=== PATIENT | male | born 1960 | race Caucasian/White ===

== ENCOUNTER 2019-01-25 19:15 | Emergency (ER) | payer MEDICARE ==
[~2019-01-25] VITALS: Ht 182.9 cm; Wt 72.6 kg
--- NOTE | 2019-01-25 19:33 | ED Psychosocial ---
General Chief Complaint: Psych/Social Disorder Stated Complaint: PSYCH EVAL Source: patient, police, RN notes reviewed Exam Limitations: no limitations History of Present Illness Date Seen by Provider: Jan 25, 2019 Time Seen by Provider: 19:32 Initial Comments Patient brought in by [facility] for mental health screening. Reportedly left a suicide note earlier tonight, although patient currently denies being suicidal. Does admit to being depressed and states he does need help. Timing/Duration: getting worse Severity: moderate Associated Symptoms: denies symptoms Allergies and Home Medications Allergies Coded Allergies: No Known Drug Allergies (Unverified , 01/25/19) Patient Home Medication List Home Medication List Reviewed: Yes Review of Systems Constitutional: see HPI Psychiatric/Neurological: See HPI, Depressed All Other Systems Reviewed Negative Unless Noted: Yes (Negative excepted noted.) Physical Exam Vital Signs - First Documented 01/25/19 19:20 Temp 99.2 Pulse 98 Resp 16 B/P (MAP) 128/79 (95) Pulse Ox 97 O2 Delivery Room Air Capillary Refill : Height, Weight, BMI Height: '" Weight: lbs. oz. kg; BMI Method: General Appearance: no apparent distress, thin, other (unkept) Respiratory: No no respiratory distress Cardiovascular: regular rate, rhythm Neurologic/Psychiatric: no motor/sensory deficits, alert, oriented x 3, depressed affect Appearance/Memory: disheveled Behavior/Eye Contact: cooperative, avoids eye contact Thoughts/Hallucinations: no apparent hallucination Skin: warm/dry Progress/Results/Core Measures Results/Orders Lab Results Laboratory Tests Test 01/25/19 19:25 01/25/19 20:45 Range/Units White Blood Count 4.8 4.3-11.0 10^3/uL Red Blood Count 5.16 4.35-5.85 10^6/uL Hemoglobin 15.0 13.3-17.7 G/DL Hematocrit 44 40-54 % Mean Corpuscular Volume 86 80-99 FL Mean Corpuscular Hemoglobin 29 25-34 PG Mean Corpuscular Hemoglobin Concent 34 32-36 G/DL Red Cell Distribution Width 12.4 10.0-14.5 % Platelet Count 271 130-400 10^3/uL Mean Platelet Volume 9.9 7.4-10.4 FL Neutrophils (%) (Auto) 67 42-75 % Lymphocytes (%) (Auto) 22 12-44 % Monocytes (%) (Auto) 8 0-12 % Eosinophils (%) (Auto) 1 0-10 % Basophils (%) (Auto) 1 0-10 % Neutrophils # (Auto) 3.2 1.8-7.8 X 10^3 Lymphocytes # (Auto) 1.1 1.0-4.0 X 10^3 Monocytes # (Auto) 0.4 0.0-1.0 X 10^3 Eosinophils # (Auto) 0.1 0.0-0.3 10^3/uL Basophils # (Auto) 0.1 0.0-0.1 10^3/uL Sodium Level 137 135-145 MMOL/L Potassium Level 3.8 3.6-5.0 MMOL/L Chloride Level 97 L 98-107 MMOL/L Carbon Dioxide Level 22 21-32 MMOL/L Anion Gap 18 H 5-14 MMOL/L Blood Urea Nitrogen 21 H 7-18 MG/DL Creatinine 1.09 0.60-1.30 MG/DL Estimat Glomerular Filtration Rate > 60 BUN/Creatinine Ratio 19 Glucose Level 165 H 70-105 MG/DL Calcium Level 9.6 8.5-10.1 MG/DL Corrected Calcium 8.5-10.1 MG/DL Total Bilirubin 0.8 0.1-1.0 MG/DL Aspartate Amino Transf (AST/SGOT) 15 5-34 U/L Alanine Aminotransferase (ALT/SGPT) 11 0-55 U/L Alkaline Phosphatase 59 40-136 U/L Total Protein 7.6 6.4-8.2 GM/DL Albumin 4.8 H 3.2-4.5 GM/DL Salicylates Level < 0.3 L 5.0-20.0 MG/DL Acetaminophen Level < 10 L 10-30 UG/ML Serum Alcohol < 10 <10 MG/DL Urine Color YELLOW Urine Clarity CLEAR Urine pH 5.5 5-9 Urine Specific Hilliards >=1.030 1.016-1.022 Urine Protein TRACE NEGATIVE Urine Glucose (UA) NEGATIVE NEGATIVE Urine Ketones 1+ H NEGATIVE Urine Nitrite NEGATIVE NEGATIVE Urine Bilirubin 1+ H NEGATIVE Urine Urobilinogen 0.2 NORMAL MG/DL Urine Leukocyte Esterase NEGATIVE NEGATIVE Urine RBC (Auto) 1+ H NEGATIVE Urine RBC 0-2 /HPF Urine WBC 0-2 /HPF Urine Squamous Epithelial Cells 0-2 /HPF Urine Crystals NONE /LPF Urine Bacteria FEW H /HPF Urine Casts NONE /LPF Urine Mucus LARGE H /LPF Urine Culture Indicated NO Urine Opiates Screen NEGATIVE NEGATIVE Urine Oxycodone Screen POSITIVE H NEGATIVE Urine Methadone Screen NEGATIVE NEGATIVE Urine Propoxyphene Screen NEGATIVE NEGATIVE Urine Barbiturates Screen NEGATIVE NEGATIVE Ur Tricyclic Antidepressants Screen NEGATIVE NEGATIVE Urine Phencyclidine Screen NEGATIVE NEGATIVE Urine Amphetamines Screen NEGATIVE NEGATIVE Urine Methamphetamines Screen NEGATIVE NEGATIVE Urine Benzodiazepines Screen NEGATIVE NEGATIVE Urine Cocaine Screen NEGATIVE NEGATIVE Urine Cannabinoids Screen NEGATIVE NEGATIVE My Orders Orders - VEGA DEY DO Ekg Tracing (01/25/19 19:33) Acetaminophen (01/25/19 19:33) Alcohol (01/25/19 19:33) Cbc With Automated Diff (01/25/19 19:33) Comprehensive Metabolic Panel (01/25/19 19:33) Drug Screen Stat (Urine) (01/25/19 19:33) Salicylate (01/25/19 19:33) Ua Culture If Indicated (01/25/19 19:33) Ondansetron Oral Dissolve Tab (Zofran (01/25/19 22:10) Ondansetron Oral Dissolve Tab (Zofran (01/25/19 22:07) Vital Signs/I&O Progress Progress Note : Progress Note Screened and cleared by [facility] screener to return home c/ family c/ an crisis appointment in AM @ the [facility] mental health office here in [facility]. Initial ECG Impression Date: Jan 25, 2019 Initial ECG Impression Time: 19:45 Initial ECG Rate: 86 Initial ECG Rhythm: Normal Sinus Initial ECG Intervals: QRS (LAD) Initial ECG Impression: Nonspecific Changes (abnormal r-wave progression, early transititon; borderline T wave abnormalities) Initial ECG Comparisson: No Previous ECG Available Departure Impression Primary Impression: Depression Disposition: 01 HOME, SELF-CARE Condition: Stable Departure-Patient Inst. Decision time for Depature: 23:05 Patient Instructions: Depression, Adult (DC) Add. Discharge Instructions: All discharge instructions reviewed with patient and/or family. Voiced understanding. FOLLOW UP DIRECTED AND AGREED UPON VEGA MENDEZ DO Jan 25, 2019 19:33
[2019-01-25 19:49] LABS: BASOPHILS % (AUTO) 1 % (0-10); EOSINOPHILS % (AUTO) 1 % (0-10); HEMATOCRIT 44 % (40-54); LYMPHOCYTES % (AUTO) 22 % (12-44); MEAN CORPUSCULAR HEMOGLOBIN 29 PG (25-34); MEAN CORPUSCULAR HGB CONC 34 G/DL (32-36); MEAN CORPUSCULAR VOLUME 86 FL (80-99); MEAN PLATELET VOLUME 9.9 FL (7.4-10.4); MONOCYTES % (AUTO) 8 % (0-12); NEUTROPHILS % (AUTO) 67 % (42-75); PLATELET COUNT 271 10^3/uL (130-400); RED CELL DISTRIBUTION WIDTH 12.4 % (10.0-14.5); WHITE BLOOD COUNT 4.8 10^3/uL (4.3-11.0)
[2019-01-25 19:50] LABS: BASOPHILS # (AUTO) 0.1 10^3/uL (0.0-0.1); EOSINOPHILS # (AUTO) 0.1 10^3/uL (0.0-0.3); LYMPHOCYTES # (AUTO) 1.1 X 10^3 (1.0-4.0); MONOCYTES # (AUTO) 0.4 X 10^3 (0.0-1.0); NEUTROPHILS # (AUTO) 3.2 X 10^3 (1.8-7.8)
--- NOTE | 2019-01-25 19:56 | NUR ---
PT BROUGHT IN BY [facility] FOR A MENTAL HEALTH SCREENING. PT CAME VOLUNTARILY AND STATES HE IS DEPRESSED. ACCORDING TO , PT LEFT A SUICIDE NOTE AND MADE COMMENTS ABOUT HAVING A GUN BUT WOULD NOT TELL ANYONE WHERE IT IS. PT DENIES BEING SUICIDAL BUT DOES ADMIT TO BEING DEPRESSED AND NEEDING SOME HELP.
[2019-01-25 19:58] LABS: BUN/CREATININE RATIO 19; CALCIUM 9.6 MG/DL (8.5-10.1); CARBON DIOXIDE 22 MMOL/L (21-32); CHLORIDE 97 MMOL/L (98-107); CREATININE SERUM 1.09 MG/DL (0.60-1.30); GFR ESTIMATED > 60; GLUCOSE 165 MG/DL (70-105); POTASSIUM 3.8 MMOL/L (3.6-5.0); SODIUM 137 MMOL/L (135-145)
[2019-01-25 19:59] LABS: ACETAMINOPHEN < 10 UG/ML (10-30); ALANINE AMINOTRANSFERASE 11 U/L (0-55); ALBUMIN 4.8 GM/DL (3.2-4.5); ALKALINE PHOSPHATASE 59 U/L (40-136); BILIRUBIN,TOTAL 0.8 MG/DL (0.1-1.0); SALICYLATE < 0.3 MG/DL (5.0-20.0); TOTAL PROTEIN 7.6 GM/DL (6.4-8.2)
[2019-01-25 21:01] LABS: AMPHETAMINE SCREEN, URINE NEGATIVE (NEGATIVE); BARBITURATE SCREEN URINE NEGATIVE (NEGATIVE); BENZODIAZEPINES SCREEN URINE NEGATIVE (NEGATIVE); CANNABINOID SCREEN, URINE NEGATIVE (NEGATIVE); COCAINE SCREEN URINE NEGATIVE (NEGATIVE); METHADONE STAT NEGATIVE (NEGATIVE); METHAMPHETAMINE SCREEN URINE S NEGATIVE (NEGATIVE); OPIATE SCREEN URINE NEGATIVE (NEGATIVE); OXYCODONE STAT POSITIVE (NEGATIVE); PROPOXYPHENE STAT NEGATIVE (NEGATIVE); TRICYCLIC ANTIDEPRESSANTS SCRE NEGATIVE (NEGATIVE)
[2019-01-25 21:02] LABS: CLARITY,URINE CLEAR; COLOR,URINE YELLOW; GLUCOSE, URINE (UA) NEGATIVE (NEGATIVE); KETONES,URINE 1+ (NEGATIVE); NITRITE,URINE NEGATIVE (NEGATIVE); PH,URINE 5.5 (5-9); PROTEIN,URINE TRACE (NEGATIVE)
[2019-01-25 21:03] LABS: BACTERIA,URINE FEW /HPF; BILIRUBIN,URINE 1+ (NEGATIVE); LEUKOCYTE ESTERASE ,URINE NEGATIVE (NEGATIVE); RBC,URINE 0-2 /HPF; SQUAMOUS EPITHELIAL CELL,UR 0-2 /HPF; UROBILINOGEN,URINE 0.2 MG/DL (NORMAL); WBC,URINE 0-2 /HPF
--- NOTE | 2019-01-25 22:04 | NUR ---
[facility] MENTAL HEALTH SCREENING PT AT THIS TIME VIA VIDEO CHAT.
[2019-01-25] MEDS ORDERED: ONDANSETRON 4 MG (ZOFRAN) ORAL DISSOLVE TAB ONE (22:07)
[2019-01-25] MEDS ORDERED: ONDANSETRON 4 MG (ZOFRAN) ORAL DISSOLVE TAB PO STA (22:10)
--- NOTE | 2019-01-25 22:49 | NUR ---
[facility] [place] [place] AND WILL SEND SAFETY PLAN FOR PT TO SIGN.
[2019-01-25 23:11] VITALS: BP 124/77
== END 2019-01-25 23:15 | disposition home or self-care (01) ==
LOC: ER FS 19:17
DX: F32.9 Major depressive disorder, single episode, unspecified (principal)
CPT/HCPCS: 36415; 80053; 80306; 80320; 80329; 81000; 85025; 93005

== ENCOUNTER 2020-08-19 20:58 | Emergency (ER) | payer MEDICARE ==
[~2020-08-19] VITALS: Ht 180.9 cm; Wt 72.1 kg
[2020-08-19 21:04] VITALS: BP 135/66
[2020-08-19] MEDS ORDERED: morphine INJ 10 MG/ML 1ML (SYR OR VIAL) IVP STA (21:08)
--- NOTE | 2020-08-19 21:15 | ED Back Pain ---
General Chief Complaint: Back Problems Stated Complaint: WEAKNESS History of Present Illness Date Seen by Provider: Aug 19, 2020 Time Seen by Provider: 21:00 Initial Comments 60-year-old male with past medical history significant for MS and chronic pain. Presents via EMS with complaint of pain of his low back and his legs as well as weakness. All other chronic symptoms. Patient states the pain medicines are not working, he has Percocet, but he has not taken any in the past 9 hours. Denies any recent illness, fever chills, chest pain, swelling of extremities, cough or shortness of air. Patient frustrated by his pain management, thinks is pain medicine is not strong enough. Switching to a new neurologist and sees the doctor next week for second opinion as his previous neurologist is retiring. No new complaints or concern. Allergies and Home Medications Allergies Coded Allergies: No Known Drug Allergies (Unverified , 01/25/19) Patient Home Medication List Home Medication List Reviewed: Yes Review of Systems Constitutional: No chills, No fever; malaise, weakness EENTM: no symptoms reported Respiratory: No cough, No short of breath Cardiovascular: No chest pain, No edema, No syncope Gastrointestinal: No abdominal pain, No nausea, No vomiting Musculoskeletal: back pain, muscle pain Past [id number]-[id number]-[id number] Hx Past Med/Social Hx: Reviewed Nursing Past Med/Soc Hx Patient Social History Alcohol Use: Denies Use Smoking Status: Current Everyday Smoker 2nd Hand Smoke Exposure: No Recent Hopitalizations: No Past Medical History Surgeries: No Respiratory: No Cardiac: No Neurological: Yes Multiple Sclerosis Genitourinary: No Gastrointestinal: No Musculoskeletal: No Endocrine: No HEENT: No Cancer: No Psychosocial: Yes Depression Integumentary: No Blood Disorders: No Physical Exam Vital Signs Capillary Refill : Height, Weight, BMI Height: 6'0" Weight: 160lbs. oz. 72.340254eg; BMI Method:Stated General Appearance: No Apparent Distress, Chronically ill, Cachetic HEENT: Moist Mucous Membranes (dry mouth ( he states it's always dry and asks for a drink, but refuses IVF) Neck: Non Tender, Supple Cardiovascular: Regular Rate, Rhythm, No Edema, No JVD Respiratory: Chest Non Tender, Lungs Clear, Normal Breath Sounds, No Accessory Muscle Use, No Respiratory Distress Gastrointestinal: Non Tender, Soft Back: Normal Inspection, No CVA Tenderness, No Vertebral Tenderness Extremity: Normal Capillary Refill, Non Tender Departure Impression Primary Impression: Chronic back pain Qualified Codes: M54.9 - Dorsalgia, unspecified; G89.29 - Other chronic pain Additional Impression: Multiple sclerosis Disposition: HOME, SELF-CARE (family here to pick him up) Condition: Improved Departure-Patient Inst. Decision time for Depature: 21:14 Referrals: LISA ARREDONDO MD (PCP/Family) Primary Care Physician Patient Instructions: Chronic Pain (DC) Add. Discharge Instructions: Follow up with your "new" Neurologist (as previously scheduled) next week. See your Primary Doctor to discuss treatment of your chronic pain- next week All discharge instructions reviewed with patient and/or family. Voiced understanding. MARYANN WOODS DO Aug 19, 2020 21:15
== END 2020-08-19 21:23 | disposition home or self-care (01) ==
LOC: EDUNIT# 20:58 → ER FS 20:59
DX: G89.29 Other chronic pain (principal); M54.5 Low back pain; G35 Multiple sclerosis; F17.200 Nicotine dependence, unspecified, uncomplicated
CPT/HCPCS: 99283